=== PATIENT | female | born 1965 | race Two or more races ===

== ENCOUNTER 2024-05-18 18:43 | Emergency (ER) | payer MEDICAID, OTHER ==
[~2024-05-18] VITALS: Ht 170.2 cm; Wt 98.3 kg
[2024-05-18 19:11] VITALS: BP 158/86; PULSE 111; RESP 19; TEMP 98.2; O2SAT 96
[2024-05-18] MEDS: NEOMYCIN-BACITRACIN-POLYM UNITDOSE PKG TOP OINT TOP ONE (19:15)
[2024-05-18 19:37] LABS: Urine Bacteria None Seen /hpf (None Seen)
[2024-05-18] MEDS: KETOROLAC TROMETH 60MG/2ML VIAL IM ONE (19:44)
[2024-05-18] MEDS: HYDROcodone-ACET 10/325MG TAB PO ONE (19:44)
[2024-05-18 19:46] LABS: Urine Blood Negative /uL (Negative); Urine Clarity Clear (Clear); Urine Color Light-Yellow (Yellow); Urine Protein, UAD Negative (Negative); Urine Specific Gravity 1.041 (1.001-1.035); Urine Urobilinogen Normal (Negative); Urine WBC 13 /hpf (0 - 5); Urine pH 5.5 (5.0-9.0)
[2024-05-18] MEDS ORDERED: IBUP-1455 PO (20:09)
[2024-05-18] MEDS ORDERED: CEPH250C PO (20:09)
[2024-05-18] MEDS ORDERED: HYDR-4902 PO (20:09)
[2024-05-18] MEDS ORDERED: CEPHALEXIN 250 MG CAP PO ONE (20:15)
== END 2024-05-18 20:15 | disposition home or self-care (01) ==
LOC: ER 18:43
DX: S00.83XA Contusion of other part of head, initial encounter (principal); S40.011A Contusion of right shoulder, initial encounter; S50.01XA Contusion of right elbow, initial encounter; V29.888A Rider (driver) (passenger) of other motorcycle injured in other specified transport accidents, initial encounter; Y93.I9 Activity, other involving external motion; Y92.89 Other specified places as the place of occurrence of the external cause; Y99.8 Other external cause status
CPT/HCPCS: 70450; 73030; 73080; 81001; 96372; 99285; J1885